=== PATIENT | female | born 1985 | race Hispanic/Latino ===

== ENCOUNTER 2017-12-12 19:10 | Emergency (ER) | payer OTHER ==
[~2017-12-12] VITALS: Ht 152.4 cm; Wt 67.1 kg
[~2017-12-12 19:10] MED LIST: CITRANATAL HARM1 SG1 PO; DICLEGIS DR 101 EACH PO; IBUPROFEN800 M1 PO; LABETALOL HCL100 M1 PO; PERCOCET 325 MG1 TA2 PO; PERCOCET 5-3251 EACH PO; PROMETHAZINE HC25 M3 PO; ZOFRAN4 M1 SL
[2017-12-12 21:37] LABS: ABSOLUTE BASOPHIL COUNT 0.1 /CUMM (0.0-0.2); ABSOLUTE EOSINOPHIL COUNT 0.6 /CUMM (0.0-0.7); ABSOLUTE GRANULOCYTE CT 3.3 /CUMM (1.4-6.5); ABSOLUTE LYMPH COUNT 2.9 /CUMM (1.2-3.4); ABSOLUTE MONOCYTE COUNT 0.5 /CUMM (0.10-0.60); BASOPHIL % 0.8 % (0.0-2.0); EOSINOPHIL % 8.7 % (0-5); GRANULOCYTE % 44.5 % (42.2-75.2); HEMATOCRIT 40.9 % (37-47); MEAN CORPUSCULAR HGB 28.9 PG (27.0-31.0); MEAN CORPUSCULAR HGB CONC 33.3 G/DL (33.0-37.0); MEAN CORPUSCULAR VOLUME 86.6 FL (81.0-99.0); MEAN PLATELET VOLUME 8.8 FL (7.4-10.4); PLATELET COUNT 251 /CUMM (130-400); RBC DISTRIBUTION WIDTH 14.7 % (11.5-14.5); RED BLOOD CELL CT 4.72 /CUMM (4.20-5.40); WHITE BLOOD CELL COUNT 7.4 /CUMM (4.8-10.8)
--- NOTE | 2017-12-12 22:29 | CT SCAN REPORT ---
EXAMINATION: CT ABDOMEN AND PELVIS WITHOUT CONTRAST CLINICAL INFORMATION: PERIUMBILICAL PAIN. COMPARISON: 06/17/2014. TECHNIQUE: Multidetector volumetric imaging was performed from the superior aspect of the liver through the pubic symphysis without contrast per request. Sagittal and coronal reformatted images were obtained on the technologist workstation. DLP: 317 mGy-cm. FINDINGS: LUNG BASES: The visualized lung bases are unremarkable. LIVER, GALLBLADDER, BILIARY TREE: The non-contrast liver is normal in size, shape, and attenuation. No focal hepatic lesion or biliary ductal dilatation is present. The gallbladder is contracted but otherwise unremarkable with no evidence of radiopaque gallstones, gallbladder wall thickening, or obvious pericholecystic inflammatory changes. PANCREAS: Unremarkable. SPLEEN: Unremarkable. ADRENAL GLANDS: Unremarkable. KIDNEYS AND URETERS: The kidneys are normal in size, shape, and attenuation. No hydronephrosis, hydroureter, or calculi seen. No perinephric stranding. BLADDER: Unremarkable. GASTROINTESTINAL TRACT: Stool and air seen throughout the colon to the rectum. Tiny normal-appearing retrocecal appendix incidentally noted. Visualized small bowel is unremarkable. ABDOMINAL WALL: No significant hernia is appreciated. LYMPHOVASCULAR STRUCTURES: No lymphadenopathy. The aorta is unremarkable.. PELVIC VISCERA: Anteroverted uterus. Left adnexa is enlarged measuring 5.3 x 4.2 cm in size suggesting possible underlying ovarian cyst, difficult to evaluate further on this noncontrast study. Contralateral right ovary is unremarkable. Small amount of likely physiologic free fluid seen in the dependent pelvis. OSSEUS STRUCTURES: Unremarkable. IMPRESSION: Normal-appearing appendix in the right lower quadrant. There is fullness to the left adnexa suggesting the presence of an underlying left adnexal cyst but this is difficult to define further on this noncontrast CT scan. Small amount of likely physiologic free fluid seen in the dependent pelvis.
--- NOTE | 2017-12-12 22:36 | ED GI/GU/ABDOMINAL COMPLAINT ---
History of Present Illness General Chief Complaint: Abdominal Pain/Flank Pain Stated Complaint: LOWER ABD PAIN X 2 WEEKS Source: patient Exam Limitations: no limitations Vital Signs & Intake/Output Vital Signs & Intake/Output Vital Signs Date Time Temp Pulse Resp B/P B/P Pulse O2 O2 Flow FiO2 Mean Ox Delivery Rate 12/13 1915 96.8 93 18 122/85 98 Room Air Allergies Coded Allergies: naproxen (Severe, HALLUCINATIONS 09/07/15) tramadol (Severe, HALLUCINATIONS 09/07/15) Reconcile Medications Hydrocodone/Acetaminophen ([place] 5-325 Tablet) 5 MG-325 MG TABLET 1-2 TAB PO Q4-6 PRN PRN PAIN Ibuprofen 800 MG TABLET 800 MG PO Q6P PRN PAIN SCALE 7-10 (SEVERE) Labetalol HCl 100 MG TABLET 100 MG PO Q24 HIGH BLOOD PRESSURE Ondansetron (Zofran Odt) 4 MG ODT 1 TAB SL TID PRN NAUSEA Oxycodone HCl/Acetaminophen (Percocet 5-325 MG Tablet) 5 MG-325 MG TABLET 1 TAB PO Q4P PRN PAIN SCALE 4-6 (MODERATE) PNV59/IRON,CARB&FUM/FA/DSS/DHA (Citranatal [place] Capsule) 1 SGL SGL 1 SGL PO DAILY (Reported) Promethazine HCl 25 MG TABLET 1 TAB PO Q6P PRN nausea Triage Note: PT TO TRIAGE WITH 7/10 LLQ PAIN X2 WEEKS WITH +N. PT REPORTS INCREASED URINARY FREQUENCY AND DYSURIA. LMP 11/21/17. Triage Nurses Notes Reviewed? yes LMP (ages 10-50): date (11/21) ? n Is pt currently ? No Onset: Abrupt Duration: week(s): (3), constant, continues in ED Timing: single episode today Quality/Severity: cramping Severity Numbers: 7 Location: left lower quadrant Radiation: no radiation Activities at Onset: none Sexually Active: Yes HPI: 32-year-old female presents for evaluation of left lower quadrant abdominal pain. She reports the pain is been present for the past 2-3 weeks constantly. She reports prior to the onset of the pain she had treated herself for a yeast infection. She reports she still is having some abnormal vaginal discharge. Denies any bleeding. She does report some urinary frequency and urgency. Denies any back pain or fevers. She has never had this pain before. Nothing seems to make the pain better or worse. She has not taken any medicine for this pain. No nausea vomiting or diarrhea. No chest pain or shortness of breath. (Ga Jules) Past History Travel History Traveled to [place] past 21 day No Medical History Any Pertinent Medical History? see below for history Neurological: NONE EENT: NONE Cardiovascular: NONE Respiratory: bronchitis, EXPOSURE TO TUBERCULOSIS PER PATIENT Gastrointestinal: NONE Hepatic: NONE Renal: NONE Musculoskeletal: NONE Psychiatric: depression Endocrine: NONE Blood Disorders: anemia Cancer(s): NONE TOXICS PROGRAM OFFICER/Reproductive: ECTOPIC Surgical History Surgical History: N Psychosocial History What is your primary language Upper Sorbian Tobacco Use: Never used Family History Hx Contributory? No (Ga Jules) Review of Systems Review of Systems Constitutional: Reports: no symptoms. EENTM: Reports: no symptoms. Respiratory: Reports: no symptoms. Cardiovascular: Reports: no symptoms. GI: Reports: see HPI, abdominal pain. Genitourinary: Reports: see HPI, discharge, frequency, urgency. Musculoskeletal: Reports: no symptoms. Skin: Reports: no symptoms. Neurological/Psychological: Reports: no symptoms. Hematologic/Endocrine: Reports: no symptoms. Immunologic/Allergic: Reports: no symptoms. All Other Systems: Reviewed and Negative (Ga Jules) Physical Exam Physical Exam General Appearance: well developed/nourished, no apparent distress, alert, awake Head: atraumatic, normal appearance Eyes: Bilateral: normal appearance, PERRL, EOMI. Ears, Nose, Throat, Mouth: moist mucous membrane Neck: normal inspection, supple, full range of motion Respiratory: normal breath sounds, chest non-tender, no respiratory distress, lungs clear Cardiovascular: regular rate/rhythm, normal peripheral pulses Peripheral Pulses: 2+ radial (R), 2+ radial (L) Gastrointestinal: normal bowel sounds, soft, no organomegaly, tenderness (llq) Pelvic: normal external exam, no cerv. motion tender, discharge, there is scant white/yellow discharge in the vaginal vault. no lesions or erythema. no cmt. no adenaxal massess or tenderness Back: normal inspection, normal range of motion, no cvat Extremities: normal range of motion Neurologic/Psych: no motor/sensory deficits, awake, alert, oriented x 3, normal gait, normal mood/affect Skin: intact, normal color, warm/dry Core Measures ACS in differential dx? No Sepsis Present: No Sepsis Focused Exam Completed? No (Liam KIRAN,Ga) Progress Differential Diagnosis: bowel obstruction, diverticulitis, ectopic , gastritis, inflamm bowel dis, intrauterine , kidney stone, ovarian cyst , ovarian torsion, PID/cervicitis, peptic ulcer, PUD/GERD, SBO, threatened AB, UTI/pyelo Plan of Care: Orders Procedure Date/time Status TRICHOMONAS 12/12 2234 Active POTASSIUM HYDROXIDE (MIS) 12/12 2234 Active GENITAL CULTURE 12/12 2234 Active CHLAMYDIA-GC DNA PROBE 12/12 2234 Active Add-on Test (ER Only) 12/12 2156 Active C-REACTIVE PROTEIN 12/12 2122 Complete URINE 12/13 1915 Complete URINALYSIS 12/13 1915 Complete LIPASE 12/13 1915 Complete COMPREHENSIVE METABOLIC PANEL 12/13 1915 Complete CBC WITHOUT DIFFERENTIAL 12/13 1915 Complete Laboratory Tests 12/12/172124: Urine Color YEL, Urine Clarity CLEAR, Urine pH 6.0, Ur Specific [place] 1.020, Urine Protein NEG, Urine Ketones NEG, Urine Nitrite NEG, Urine Bilirubin NEG, Urine Urobilinogen 0.2, Ur Leukocyte Esterase NEG, Ur Microscopic EXAM NOT REQUIRED, Urine Hemoglobin NEG, Urine Glucose NEG, Urine Test NEGATIVE 12/12/172122: Anion Gap 12, Estimated GFR > 60, BUN/Creatinine Ratio 18.8, Glucose 91, Calcium 10.0, Total Bilirubin 0.3, AST 25, ALT 29, Alkaline Phosphatase 78, C-Reactive Prot, Quant < 0.5, Total Protein 8.3 H, Albumin 4.8, Globulin 3.5, Albumin/ Globulin Ratio 1.4, Lipase 211, CBC w Diff NO MAN DIFF REQ, RBC 4.72, MCV 86.6, MCH 28.9, MCHC 33.3, RDW 14.7 H, MPV 8.8, Gran % 44.5, Lymphocytes % 39.7, Monocytes % 6.3, Eosinophils % 8.7 H, Basophils % 0.8, Absolute Granulocytes 3.3, Absolute Lymphocytes 2.9, Absolute Monocytes 0.5, Absolute Eosinophils 0.6, Absolute Basophils 0.1 Microbiology 12/12 2234 GENITAL: GC DNA Probe - RECD 12/12 2234 GENITAL: Chlamydia DNA Probe (JAZMIN) - RECD 12/12 2234 GENITAL: MIS Preparation - RECD 12/12 2234 GENITAL: Trichomonas Preparation - RECD 12/12 2234 GENITAL: Genital Culture - RECD Patient is here with left lower quadrant abdominal pain that has been present constantly for 2 weeks. She feels like the pain is been getting worse. Vital signs are stable. She also admits to urinary frequency urgency and vaginal discharge. A pelvic exam was done there was scant whitish/yellow discharge. No cervical motion tenderness. No palpable adnexal masses. Patient was treated empirically with Rocephin and Zithromax genital cultures ordered. Blood work is unremarkable. CT scan is negative for appendicitis or diverticulitis. There is some left adnexal fullness suggesting a left ovarian cyst. Consider the possibility of ovarian torsion however patient has had symptoms constantly for 2 weeks now. She will be discharged with a prescription for Roseland to use for pain and instructed to follow-up with her [facility] doctor. Advised that she will likely need a ultrasound in the future. Discussed return precautions in detail. Patient agrees the plan Diagnostic Imaging: Viewed by Me: CT Scan. Discussed w/RAD: CT Scan. Radiology Impression: PATIENT: DAMIAN CANADA PRESENT AGE: 32 PATIENT ACCOUNT NO: [id number] : 86 LOCATION: [facility] ORDERING PHYSICIAN: Ga KIRAN SERVICE DATE: 12/12/17 EXAM TYPE: CAT - CT ABD & PELVIS W/O IV CONTRAS EXAMINATION: CT ABDOMEN AND PELVIS WITHOUT CONTRAST CLINICAL INFORMATION: PERIUMBILICAL PAIN. COMPARISON: 06/17/2014. TECHNIQUE: Multidetector volumetric imaging was performed from the superior aspect of the liver through the pubic symphysis without contrast per request. Sagittal and coronal reformatted images were obtained on the technologist workstation. DLP: 317 mGy-cm. FINDINGS: LUNG BASES: The visualized lung bases are unremarkable. LIVER, GALLBLADDER, BILIARY TREE: The non-contrast liver is normal in size, shape, and attenuation. No focal hepatic lesion or biliary ductal dilatation is present. The gallbladder is contracted but otherwise unremarkable with no evidence of radiopaque gallstones, gallbladder wall thickening, or obvious pericholecystic inflammatory changes. PANCREAS: Unremarkable. SPLEEN: Unremarkable. ADRENAL GLANDS: Unremarkable. KIDNEYS AND URETERS: The kidneys are normal in size, shape, and attenuation. No hydronephrosis, hydroureter, or calculi seen. No perinephric stranding. BLADDER: Unremarkable. GASTROINTESTINAL TRACT: Stool and air seen throughout the colon to the rectum. Tiny normal-appearing retrocecal appendix incidentally noted. Visualized small bowel is unremarkable. ABDOMINAL WALL: No significant hernia is appreciated. LYMPHOVASCULAR STRUCTURES: No lymphadenopathy. The aorta is unremarkable.. PELVIC VISCERA: Anteroverted uterus. Left adnexa is enlarged measuring 5.3 x 4.2 cm in size suggesting possible underlying ovarian cyst, difficult to evaluate further on this noncontrast study. Contralateral right ovary is unremarkable. Small amount of likely physiologic free fluid seen in the dependent pelvis. OSSEUS STRUCTURES: Unremarkable. IMPRESSION: Normal-appearing appendix in the right lower quadrant. There is fullness to the left adnexa suggesting the presence of an underlying left adnexal cyst but this is difficult to define further on this noncontrast CT scan. Small amount of likely physiologic free fluid seen in the dependent pelvis. DICTATED BY: Greg Tomas MD DATE/TIME DICTATED:12/12/172219 AUDIT TECH:CATE DATE/TIME TRANSCRIBED:12/12/172219 CONFIDENTIAL, DO NOT COPY WITHOUT APPROPRIATE AUTHORIZATION. <Electronically signed in Other Vendor System> SIGNED BY: Greg Tomas MD 12/12/172228 Initial ED EKG: none (Ga Jules) Departure Departure Disposition: HOME OR SELF CARE Condition: Stable Clinical Impression Primary Impression: Ovarian cyst Qualifiers: Laterality: left Qualified Code: N83.202 - Unspecified ovarian cyst , left side Referrals: Ji Barney APRN (PCP/Family) Additional Instructions: Rest, avoid heavy lifting bending or excessive physical activity. Tylenol ibuprofen for pain Ros[place] for severe pain only this may cause drowsiness. Make a follow-up appointment with your [facility] doctor as soon as possible. Monitor your symptoms if your pain becomes constant more severe you have fever or any other concerns return immediately. Departure Forms: Customer Survey General Discharge Information Prescriptions: Current Visit Scripts Hydrocodone/Acetaminophen ([place] 5-325 Tablet) 1-2 TAB PO Q4-6 PRN PRN PAIN #10 TAB (Ga Jules) PA/BUTTER PRODUCTION SUPERVISOR Co-Sign Statement Statement: ED Attending supervision documentation- I saw and evaluated the patient. I have also reviewed all the pertinent lab results and diagnostic results. I agree with the findings and the plan of care as documented in the PA's/BUTTER PRODUCTION SUPERVISOR's documentation. x I have reviewed the ED Record and agree with the PA's/BUTTER PRODUCTION SUPERVISOR's documentation. [] Additions or exceptions (if any) to the PAs/BUTTER PRODUCTION SUPERVISOR's note and plan are summarized below: [] (Clement SIMONS,[place]on)
[2017-12-12] MEDS ORDERED: NORCO 5-325 TA1 EACH PO (22:45)
[2017-12-12 23:11] VITALS: BP 126/76
== END 2017-12-12 23:13 ==
LOC: ERH 19:10
PROVIDERS: Physician Assistant Medical
DX: N83.202 Unspecified ovarian cyst, left side (principal); F32.9 Major depressive disorder, single episode, unspecified; D64.9 Anemia, unspecified
CPT/HCPCS: 87070; 74176; 81003; 81025; 87071; 87491; 87591; 96372; J0456; J0696